=== PATIENT | male | born 1980 | race Caucasian/White ===

== ENCOUNTER 2018-03-03 19:09 | Emergency (ER) | payer MEDICAID, SELFPAY ==
[2018-03-03 19:11] VITALS: BP 117/89; PULSE 99; RESP 18; TEMP 36.8; O2SAT 98; BMI 27.1
--- NOTE | 2018-03-03 19:32 | ED.VISSUMM ---
- ER Visit Summary Date of Service: 03/03/18 Chief Complaint: Dental pain History of Present Illness: The patient is a 37 M worsening dental pain since this morning right lower. Mild swelling. States subjective fevers. No difficulty swallowing. Tobacco history. Has had similar symptoms in the past however different teeth. States does not like going to the dentist has had tooth extractions in the past including wisdom teeth. States he goes to whatever dentist he can. No allergies. Ibuprofen taken more than 6 hours ago. No history of gastric ulcers or kidney injury. Physical Examination: General: Alert and oriented ?3, no acute distress HEENT: Normocephalic, atraumatic. Moist mucosa membranes. Focal diffuse dental decay tooth #29 there is been extracted 30-32. There is no focal fluctuance. There is no sublingual edema. Airway patent. Neck: supple, nontender. No crepitus Cardiovascular: Regular rate and rhythm, no murmurs Respiratory: Normal breath sounds, symmetric, no distress Abdomen: Soft, nontender, nondistended Extremities: Nontender, no edema, pulses intact ?4 Neuro: no focal neurological deficits. Test Results: [] Emergency Department Course and Treatment: Patient focal dental decay with tenderness. Nontoxic, airway patent. No abscess palpated. Started on penicillin continue ibuprofen, dental list given for follow-up for definitive care. Treatment Plan: [] Disposition: Discharge Impression: 1. Dentalgia 2. Dental caries This note was generated with Mandae dictation software. It may contain incorrect words, spelling, and punctuation that were not noted in review of the chart prior to signing ED Disposition - Plan for ED Patient: Disposition: Home or Assisted Living Chief Complaint: Dental Diagnosis: Dental caries Instructions: ED Cavity Dental Prescriptions: Ibuprofen 600 mg PO 4X/DAY PRN #20 tablet PRN Reason: Pain Penicillin V Potassium 500 mg PO 4X/DAY #40 tablet Referrals: NOT,DEFINED [Primary Care Provider] - Dentist,Your [STAFF PHYSICIAN] - Additional Instructions: Review dental list for follow up and definitive treatment.
[2018-03-03] MEDS: Ibuprofen 600 MG Tablet PO (19:36)
[2018-03-03] MEDS: Penicillin Vk 250 MG Tablet 500 MG PO (19:36)
[2018-03-03 20:05] VITALS: BP 145/98; PULSE 78; RESP 16; O2SAT 98
== END 2018-03-03 20:16 | disposition home or self-care (01) ==
LOC: ED 20:06
PROVIDERS: Emergency Provider Emergency Medicine
DX: K02.9 Dental caries, unspecified (principal); K08.89 Other specified disorders of teeth and supporting structures
CPT/HCPCS: 99283